=== PATIENT | female | born 1970 ===

== ENCOUNTER 2018-01-18 06:40 | Day surgery (SDC) | payer OTHER ==
[2018-01-18 07:41] VITALS: O2SAT 100
[2018-01-18] MEDS ORDERED: Propofol 10 mg/ml Inj (20 ML) ONE (08:44)
[2018-01-18] MEDS ORDERED: Midazolam 2 MG/2 ML VIAL ONE (08:44)
[2018-01-18] MEDS ORDERED: cefOXitin IV 1 gm in Dextrose 1 GM/50 ML BAG IVPB ONE (08:50)
[2018-01-18] MEDS ORDERED: Lidocaine Hydrochloride 5 ML INJ ONE (08:53)
[2018-01-18] MEDS ORDERED: Lactated Ringer's 500 ML IV ONE ×3 (09:35→11:20)
--- NOTE | 2018-01-18 10:18 | PCM.SURG1 ---
Surgeon's Initial Post Op Note - Surgeon's Notes Surgeon: dr brady Business Functional Analyst: none Type of Anesthesia: General LMA Anesthesia Administered By: dr wick Pre-Operative Diagnosis: 47 wth aub and endomtrial thickening Operative Findings: see the op reort Post-Operative Diagnosis: same with end polyp Operation Performed: d&c, hysterscopy/mayasure Specimen/Specimens Removed: ecc. emc. polyp Estimated Blood Loss: EBL {In ML}: 20 Blood Products Given: N/A Drains Used: No Drains Post-Op Condition: Good Date of Surgery/Procedure: 01/18/18 Time of Surgery/Procedure: 11:00
[2018-01-18 11:43] VITALS: RESP 16
[2018-01-18 13:11] VITALS: BP 107/63; PULSE 69; TEMP 97.7
--- NOTE | 2018-01-19 07:29 | OP ---
PROCEDURE DATE: 01/18/2018 PREOPERATIVE DIAGNOSIS: A 47-year-old 2, para 2 with abnormal uterine bleeding and endometrial thickening. POSTOPERATIVE DIAGNOSIS: Endometrial polyp. SURGEON: Billy Bates MD. GUITAR INSTRUCTOR: None. ANESTHESIA: General. ANESTHESIOLOGIST: Dr. Konstantin Gray. PROCEDURE PERFORMED: MyoSure, dilatation and curettage, and hysteroscopy. COMPLICATIONS: None. ESTIMATED BLOOD LOSS: 20 mL. DEFICIT: 200 mL. DESCRIPTION OF PROCEDURE: After informed consent was obtained, the patient was brought to the operating room, placed on the table where general anesthesia was given. When anesthesia was found to be sufficient, the patient was prepped and draped in the normal sterile fashion. Zurita catheter was inserted under sterile condition. Anterior lip of the cervix was grasped with a tenaculum. Gentle dilatation of the cervix was performed. It was found that there was a polyp on the posterior wall of the uterus. Picture was taken, and the decision was made to use the MyoSure. MyoSure was introduced, and the polyp was removed. After that, sharp curettage of all the rosario of the uterus was done, and ECC was sent to the pathology. After the MyoSure, the hysteroscope was then introduced, no polyp was found. After that, tenaculum was taken out of the anterior lip of the cervix. The patient tolerated the procedure well. Lap, sponge, and instrument counts were correct x2. Billy Bates MD
== END 2018-01-18 13:07 | disposition home or self-care (01) ==
LOC: C.SDS 06:40
PROVIDERS: ATTEND Obstetrics & Gynecology
DX: N84.0 Polyp of corpus uteri (principal); N93.9 Abnormal uterine and vaginal bleeding, unspecified
CPT/HCPCS: 58558; 88305; J0694; J2250; J2270; J2405; J2704; J3010; J7120